=== PATIENT | female | born 1965 | race Caucasian/White ===

== ENCOUNTER 2021-07-06 17:09 | Emergency (ER) | payer MEDICAID ==
[~2021-07-06] VITALS: Ht 165.1 cm; Wt 52.2 kg
--- NOTE | 2021-07-06 17:10 | NUR ---
BIBS C/O L INNER LEG BRUISING THAT PROTRUDES X1 DAY, NO RECENT INJURY WITH 3/10 ON PAIN SCALE. PLACED COMFORTABLY IN BED. VITALS CHECKED
--- NOTE | 2021-07-06 17:51 | NUR ---
DUPLEX SANCHEZ TECH AT BEDSIDE
--- NOTE | 2021-07-06 17:51 | NUR ---
URINE SPECIMEN SENT TO LAB
[2021-07-06 19:20] LABS: BILIRUBIN,URINE NEGATIVE (NEGATIVE); COLOR,URINE YELLOW (YELLOW); LEUKOCYTE ESTERASE ,URINE NEGATIVE (NEGATIVE); NITRITE, URINE NEGATIVE (NEGATIVE); PH,URINE 6.5 (5.0-8.0); PROTEIN,URINE NEGATIVE (NEGATIVE); UGLUCOSE NEGATIVE (NEGATIVE); UROBILINOGEN,URINE 0.2 EU/dL (0.2)
[2021-07-06 20:00] VITALS: BP 111/66
--- NOTE | 2021-07-06 20:20 | NUR ---
Patient discharged to home in stable condition. Written and verbal after care instructions given. Patient verbalizes understanding of instruction.
== END 2021-07-06 20:22 | disposition home or self-care (01) ==
LOC: ER 17:12
DX: I83.93 Asymptomatic varicose veins of bilateral lower extremities (principal); S80.02XA Contusion of left knee, initial encounter; S70.11XA Contusion of right thigh, initial encounter; X58.XXXA Exposure to other specified factors, initial encounter; Y93.89 Activity, other specified; Y92.89 Other specified places as the place of occurrence of the external cause; Y99.8 Other external cause status
CPT/HCPCS: 93970-TC